=== PATIENT | female | born 1970 | race Caucasian/White ===

== ENCOUNTER 2024-07-29 23:01 | Emergency (ER) | payer MEDICAID, OTHER ==
[~2024-07-29] VITALS: Ht 152.4 cm; Wt 78.0 kg
[2024-07-29 23:11] VITALS: BP 155/96; PULSE 97; RESP 18; TEMP 98.2; O2SAT 100
== END 2024-07-30 02:21 | disposition home or self-care (01) ==
LOC: ER 23:01
DX: M54.2 Cervicalgia (principal); R68.84 Jaw pain; F17.210 Nicotine dependence, cigarettes, uncomplicated; Z88.1 Allergy status to other antibiotic agents
CPT/HCPCS: 93005